=== PATIENT | female | born 1985 | race Caucasian/White ===

== ENCOUNTER 2017-07-22 15:15 | Outpatient (CLI) | payer OTHER | END 2017-07-22 16:53 | disposition home or self-care (01) | LOC: NST 15:15 | DX: Z34.82 Encounter for supervision of other normal pregnancy, second trimester (principal) ==

== ENCOUNTER 2017-08-26 15:00 | Inpatient (IN) | payer OTHER ==
[~2017-08-26] VITALS: Ht 154.9 cm; Wt 2.7 kg
[2017-09-08] MEDS ORDERED: ATABEX EC CAPL1 EACH PO (14:20)
[2017-09-08] MEDS ORDERED: MAXFE CAPLET1 EACH PO (14:20)
[2017-09-08] MEDS ORDERED: OMEGA-3100 MG PO (14:21)
[2017-09-08] MEDS ORDERED: PB8 PO (14:22)
== END 2017-09-13 14:38 | disposition home or self-care (01) | DRG 766 ==
LOC: O/R 09-10 08:32 → SURG-SUITE 09-10 13:24 → OB/GYN 09-10 14:30 → SURG-SUITE 09-10 16:05 → OB/GYN 09-16 15:00
PROVIDERS: Obstetrics & Gynecology
PROC: 4A1HXCZ Monitoring of Products of Conception, Cardiac Rate, External Approach (ICD-10-PCS; 2017-09-10)
PROC: 10D00Z1 Extraction of Products of Conception, Low, Open Approach (ICD-10-PCS; principal; 2017-09-10 14:30)
DX: O64.1XX0 Obstructed labor due to breech presentation, not applicable or unspecified (principal); Z3A.39 39 weeks gestation of pregnancy; Z37.0 Single live birth

== ENCOUNTER 2017-09-01 12:45 | Outpatient (CLI) | payer OTHER | END 2017-09-01 13:40 | disposition home or self-care (01) | LOC: NST 12:45 | DX: Z34.83 Encounter for supervision of other normal pregnancy, third trimester (principal) ==